=== PATIENT | female | born 1980 | race African-American/Black ===

== ENCOUNTER 2022-07-12 12:21 | Emergency (ER) | payer OTHER, SELFPAY ==
[2022-07-12 12:32] VITALS: BP 153/91; PULSE 90; RESP 15; TEMP 35.6; O2SAT 98; BMI 32.5
--- NOTE | 2022-07-12 14:13 | ED.BACK ---
HPI - Back Pain/Injury <TRAN Lloyd - Last Filed: 07/12/22 14:30> General Chief Complaint: Back Pain/Injury Stated Complaint: L Lower back side pain extrem discomfort Time Seen by Provider: 07/12/22 13:59 Source: patient History of Present Illness HPI Narrative: This is a 42-year-old female presents to the emergency department complaining of left-sided sciatica symptoms with pain starting at her posterior buttock and traveling down the lateral aspect of her leg to her mid thigh. She states it is sharp, has a history of stroke, is anticoagulated on Eliquis, has been seen 2 times for this pain that has been going on for 3 or more weeks. She was seen for this in [place], was given Flexeril which she states was not that helpful, she was seen on 06/20/2022 at [facility] in [place] where lumbar x-rays were completed without acute abnormality, she was given a steroid pack and states that it helped briefly but did not make a large difference. She denies any weakness, incontinence, urinary retention, or constipation. [facility] to follow-up with a primary care provider. She has received a referral for massage, chiropractor, but has not seen physical therapy or orthopedics for this yet. Related Data Previous Rx's Medication Instructions Recorded diclofenac sodium 1 % topical gel 2 g topical QID #100 grams 07/12/22 hydrocodone 5 mg-acetaminophen 325 1 tab PO BID #10 tabs 07/12/22 mg tablet lidocaine 5 % topical patch 1 patch topical DAILY #15 ea 07/12/22 (Lidoderm) methocarbamol 500 mg tablet 500 mg PO BEDTIME PRN muscle spasm 07/12/22 #14 tabs prednisone 20 mg tablet 40 mg PO DAILY 5 days #10 tabs 07/12/22 Allergies Allergy/AdvReac Type Severity Reaction Status Date / Time No Known Drug Allergies Allergy Verified 07/12/22 12:32 Review of Systems <TRAN Lloyd - Last Filed: 07/12/22 14:30> Review of Systems Narrative: Review of systems is negative for acute abnormalities unless otherwise noted in HPI Patient History <RTAN Lloyd - Last Filed: 07/12/22 14:30> Social History Smoking Status: Unknown if ever smoked Smoking Status: Unknown if ever smoked alcohol intake frequency: holidays/special occasions only Substance Use Type: does not use Exam <TRAN Lloyd - Last Filed: 07/12/22 14:30> Narrative Exam Narrative: Reviewed vitals signs and nursing notes. General: cooperative, comfortable, in no acute distress, well groomed, smoker, afebrile HEENT: symmetrical facial expressions, moist mucous membranes, and congestion is present Cardiovascular: regular rate and rhythm, no peripheral edema, warm extremities Respiratory: normal effort, able to speak in complete sentences, without wheezing, stridor, or abnormal breath sounds. No retractions or tachypnea. Breath sounds clear in bases and bilaterally, no increased respiratory effort, no tenderness over her lumbar spine with palpation, without weakness, dorsiflexion and plantar extension intact bilaterally with grossly equal strength. MSK: moves all extremities, neurovascularly intact, no weakness, normal tone Skin: brisk capillary refill, without pallor or erythema Neuro: normal speech and cognition, A&O x3, ambulatory, clear speech Psych: mental status is grossly normal, congruent mood, normal affect, pleasant and cooperative Initial Vital Signs Initial Vital Signs: Vital Signs Temperature 96.0 F L 07/12/22 12:32 Pulse Rate 90 07/12/22 12:32 Respiratory Rate 15 07/12/22 12:32 Blood Pressure 153/91 H 07/12/22 12:32 Pulse Oximetry 98 07/12/22 12:32 Oxygen Delivery Method 07/12/22 12:32 <Frederick Hawk DO - Last Filed: 07/12/22 14:35> Initial Vital Signs Initial Vital Signs: Vital Signs Temperature 96.0 F L 07/12/22 12:32 Pulse Rate 90 07/12/22 12:32 Respiratory Rate 15 07/12/22 12:32 Blood Pressure 153/91 H 07/12/22 12:32 Pulse Oximetry 98 07/12/22 12:32 Oxygen Delivery Method 07/12/22 12:32 Course <TRAN Lloyd - Last Filed: 07/12/22 14:30> Orders Ordered: Discontinued Medications Hydrocodone Bitart/Acetaminophen (Hydrocodone/Acet 5/325 Tablet) 1 tab PO NOW ONE Stop: 07/12/22 14:09 Last Admin: 07/12/22 14:33 Dose: Not Given Documented By: CICI Lidocaine (Lidocaine Patch 1 Each Adh..Patch) 1 each TOP NOW ONE Stop: 07/12/22 14:09 Last Admin: 07/12/22 14:32 Dose: 1 each Documented By: CICI Methocarbamol (Methocarbamol 500 Mg Tablet) 500 mg PO NOW ONE Stop: 07/12/22 14:09 Last Admin: 07/12/22 14:33 Dose: Not Given Documented By: CICI Prednisone (Prednisone 20 Mg Tablet) 60 mg PO NOW ONE Stop: 07/12/22 14:09 Last Admin: 07/12/22 14:33 Dose: 60 mg Documented By: CICI Vital Signs Vital signs: Vital Signs - 8 hr 07/12/22 12:32 Temperature 96.0 F L Pulse Rate 90 Respiratory Rate 15 Blood Pressure 153/91 H Pulse Oximetry 98 Oxygen Delivery Method Room Air <Frederick Hawk DO - Last Filed: 07/12/22 14:35> Orders Ordered: Discontinued Medications Hydrocodone Bitart/Acetaminophen (Hydrocodone/Acet 5/325 Tablet) 1 tab PO NOW ONE Stop: 07/12/22 14:09 Last Admin: 07/12/22 14:33 Dose: Not Given Documented By: CICI Lidocaine (Lidocaine Patch 1 Each Adh..Patch) 1 each TOP NOW ONE Stop: 07/12/22 14:09 Last Admin: 07/12/22 14:32 Dose: 1 each Documented By: CICI Methocarbamol (Methocarbamol 500 Mg Tablet) 500 mg PO NOW ONE Stop: 07/12/22 14:09 Last Admin: 07/12/22 14:33 Dose: Not Given Documented By: CICI Prednisone (Prednisone 20 Mg Tablet) 60 mg PO NOW ONE Stop: 07/12/22 14:09 Last Admin: 07/12/22 14:33 Dose: 60 mg Documented By: CICI Vital Signs Vital signs: Vital Signs - 8 hr 07/12/22 12:32 Temperature 96.0 F L Pulse Rate 90 Respiratory Rate 15 Blood Pressure 153/91 H Pulse Oximetry 98 Oxygen Delivery Method Room Air MDM - Back Pain/Injury <TRAN Lloyd - Last Filed: 07/12/22 14:30> MDM Narrative Medical decision making narrative: This is a 42-year-old female presents to the emergency department after 2 visits for her left-sided sciatica which has not improved after steroids and muscle relaxers. Patient has a history of CVA and is anticoagulated on Eliquis, she can not have NSAIDs, she presents for the 3rd time at a new facility for evaluation of her lumbar radiculopathy, she is without weakness, incontinence, signs of cauda equina, groin paresthesia, numbness or tingling. She endorses left lateral hip pain radiating to the mid thigh which comes from her posterior buttock. She is without trauma and is afebrile. Given history and exam, suspect likely musculoskeletal etiology, they are nontoxic appearing with no overt risk factors for epidural hematoma or abscess. No overt evidence of critical cord compression and has a nonfocal near exam. Neurovascularly intact distally, no evidence of infection, peritoneal signs, hypertensive crisis, or abdominal pain with low suspicion for AAA. No weakness, incontinence, neurovascular or sensation changes, no concerning findings for caudal equina syndrome, lumbar fracture, without paresthesia, neuropathic pain, meningeal signs and fever. This could be a herniated disk, paraspinal or other muscle strain, ligamental injury, arthritic, nephrolithiasis/pyelonephritis, epidural abscess, chronic pain, and other diagnosis? considered less likely. She is given referral contact information for [facility] and encouraged to follow-up with her primary care provider to your referral to physical therapy. Patient is appropriate and amenable to discharge home. Vital signs are stable on repeat examination is unremarkable. Patient has been informed of results. Patient has been given strict return to ER precautions for any new or worsening symptoms. Patient understands to follow up closely with outpatient providers as instructed. Patient understands plan and agrees to discharge home. All questions and concerns answered at this time. Discharge Plan Departure Patient Disposition: Home Clinical Impression: Sciatica Qualifiers: Laterality: left Qualified Code(s): M54.32 - Sciatica, left side Instructions: DI for Sciatica Activity Restrictions/Additional Instructions: *You have been diagnosed with sciatica which is likely coming from your lumbar spine causing radiation of pain from there due to an irritated nerve root. Please use the topical agents I have prescribed for you in conjunction with Tylenol, hydrocodone, and the steroid again. Please follow-up at [facility] for another evaluation and/or with physical therapy. You may benefit from steroid injections to this area if this has been recurrent. They can help get you connected over there. I hope you start feeling better soon, try to avoid overuse, over strain, or over massage while this is getting better. Heat and ice can be helpful, try to avoid lots of bending or flexion of your lower lumbar spine. I wish you the best. The diclofenac gel is the best thing to use frequently because he can not take ibuprofen. *What to do: *Please continue to take your regular medications as directed. [x ] New medication prescriptions sent to your pharmacy: [ [facility] ] [ ] New medication written as a paper prescription [ ] No new medications given *Please follow up with your primary care provider in 2-3 days, call for an appointment. Let them know you were seen in the Emergency Department and that we asked that you be seen for follow-up. We will electronically transmit a record of today's note if your PCP is in our system *If you do not have a primary care provider please contact [phone] to establish care with one of the [facility] primary care providers. *Return to Emergency Department if you should have any new, worsening, or concerning symptoms, such as [fever greater than 101F, chills, worsening pain, persistent vomiting or other bothersome symptoms]. Prescriptions: New hydrocodone-acetaminophen 5-325 mg tablet 1 tab PO BID Qty: 10 0RF lidocaine [Lidoderm] 5 % adhesive patch,medicated 1 patch topical DAILY Qty: 15 0RF Rx Instructions: leave on most painful area for up to 12 hrs diclofenac sodium 1 % gel 2 g topical QID Qty: 100 0RF Rx Instructions: apply to area of pain up to 4 times daily methocarbamol 500 mg tablet 500 mg PO BEDTIME PRN (Reason: muscle spasm) Qty: 14 0RF prednisone 20 mg tablet 40 mg PO DAILY 5 Days Qty: 10 0RF Referrals: [facility] [Provider Group] <Frederick Hawk, DO - Last Filed: 07/12/22 14:35> Cosign ED Attending Coskirbyature Attestation: Dr Hawk Co-Sign Statement: I was available for consultation during this patient's emergency department visit. This chart is signed by myself for administrative purposes only. I did not have direct contact with this patient during this visit. They were seen independently by the [facility].
[2022-07-12] MEDS: LIDOCAINE PATCH 1 EACH ADH..PATCH TOP (14:32)
[2022-07-12] MEDS: predniSONE 20 MG TABLET 60 MG PO (14:33)
== END 2022-07-12 15:42 | disposition home or self-care (01) ==
PROVIDERS: Emergency Provider Nurse Practitioner Critical Care Medicine
DX: M54.32 Sciatica, left side (principal); Z79.01 Long term (current) use of anticoagulants
CPT/HCPCS: 99283

== ENCOUNTER 2022-10-02 14:48 | Emergency (ER) | payer OTHER, SELFPAY ==
[2022-10-02 14:57] VITALS: BP 155/74; PULSE 94; RESP 18; TEMP 36.6; O2SAT 98; BMI 33.6
--- NOTE | 2022-10-02 15:03 | DI.RAD.S_ITS ---
PROCEDURE: XR CHEST 1V INDICATIONS: Shortness of breath TECHNIQUE: One view of the chest was acquired. COMPARISON: [facility], CT, CT HEAD/BRAIN WO CON, 10/02/2022, 15:29. [facility], CR, XR THORACIC SPINE 3 VIEWS, 06/20/2022, 14:43. FINDINGS: Surgical changes and devices: None. Lungs and pleura: Lungs are clear. No pleural effusions or pneumothorax. Mediastinum: Mediastinal contours appear normal. Heart size is normal. Bones and chest wall: No suspicious bony lesions. Overlying soft tissues appear unremarkable. IMPRESSION: Portable chest within normal limits. Dictated by: Brad Payne M.D. on 10/02/2022 at 14:48 Approved by: Brad Payne M.D. on 10/02/2022 at 14:49
--- NOTE | 2022-10-02 15:18 | DI.CT.S_ITS ---
PROCEDURE: CT HEAD/BRAIN WO CON INDICATIONS: chest pain/pressure, left arm numb, hx of stroke TECHNIQUE: Noncontrast 4.5 mm thick angled axial sections acquired from the foramen magnum to the vertex, with coronal and sagittal reformats. For radiation dose reduction, the following was used: automated exposure control, adjustment of mA and/or kV according to patient size. COMPARISON: [facility], CR, XR CHEST 1V, 10/02/2022, 15:16. FINDINGS: Image quality: Excellent. CSF spaces: Basal cisterns are patent. No extra-axial fluid collections. Ventricles are normal in size and shape. Brain: No midline shift. No intracranial masses or hemorrhage. Antonio-white matter interface is normal. Skull and face: Calvarium and visualized facial bones are intact, without suspicious lesions. Sinuses: Visualized sinuses and mastoids are clear. IMPRESSION: No acute intracranial hemorrhage is seen. No acute intracranial process is seen. If there is strong clinical suspicion for an acute stroke, please consider a brain MRI for further evaluation, as it is more sensitive (assuming that there is no contraindication to MRI). Dictated by: Brad Payne M.D. on 10/02/2022 at 14:49 Approved by: Brad Payne M.D. on 10/02/2022 at 14:50
[2022-10-02 15:21] LABS: Add Manual Diff / Slide Review NO; Basophils Absolute Auto 100 /uL (0-100); Basophils Percent Auto 0.7 % (0-2); Eosinophils Absolute Auto 200 /uL (0-450); Hematocrit 37.8 % (36-46); Hemoglobin 12.5 g/dL (12.0-16.0); Lymphocytes Absolute Auto 2100 /uL (1100-4500); Mean Corpuscular HGB Conc 33.1 % (30-36); Mean Corpuscular Hemoglobin 28.2 PG (26-34); Monocytes Absolute Auto 600 /uL (0-900); Monocytes Percent Auto 8.1 % (3-14); Neutrophils Absolute Auto 4700 /uL (1500-7000); Neutrophils Percent Auto 61.2 % (50-75); Platelet Count 246 X10^3/uL (150-400); Red Blood Cell Count 4.44 X10^6/uL (4.0-5.2); Red Cell Distribution Width 14.3 % (11.6-14.8); White Blood Cell Count 7.6 X10^3/uL (4.5-11.0)
[2022-10-02 15:29] LABS: INR 1.2 (0.9-1.3)
[2022-10-02 15:38] LABS: Alanine Aminotransferase 20 IU/L (<35); Albumin 4.1 g/dL (3.5-5.0); Albumin Globulin Ratio 1.1 (1.0-2.8); Alkaline Phosphatase 71 U/L (38-126); Aspartate Aminotransferase 34 IU/L (14-36); BUN Creatinine Ratio 17.8 (6-22); Bilirubin Total 0.8 mg/dL (0.2-1.3); Blood Urea Nitrogen 13 mg/dL (7-17); Calcium 8.3 mg/dL (8.4-10.2); Carbon Dioxide 28 mmol/L (22-32); Chloride 101 mmol/L (98-107); Estimated Glomerular Filt Rate > 60 mL/min (>60); Globulin 3.9 g/dL (1.7-4.1); Glucose 82 mg/dL (70-100); Lactate (Lactic Acid) 1.2 mmol/L (0.7-2.1); Potassium 4.7 mmol/L (3.4-5.1); Sodium 137 mmol/L (137-145)
[2022-10-02 15:39] LABS: HEMOLYSIS 119 (0-50)
[2022-10-02 15:50] LABS: NT-proBNP (BNP-Adult 18+) 73 pg/mL (<125); Troponin I < 0.012 ng/mL (0.01-0.034)
[2022-10-02 17:36] LABS: COVID19 -Nasal RAPID Negative (Negative)
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
--- NOTE | 2022-10-02 17:52 | DI.CT.S_ITS ---
PROCEDURE: CT ANGIO HEAD AND NECK INDICATIONS: left arm numbness hx of cva TECHNIQUE: After the administration of intravenous contrast, 1 mm thick sections acquired from the aortic arch through the [place] of [place]. Post-contrast 4.5 mm thick sections then re-acquired from the foramen magnum to the vertex. 3-dimensional igzfjvq-wfvvofqyh-ackcuzkgcc (MIP) and/or volume rendering reformats were acquired of the central intracranial vasculature and neck separately. For radiation dose reduction, the following was used: automated exposure control, adjustment of mA and/or kV according to patient size. COMPARISON: [facility], CT, CT HEAD/BRAIN WO CON, 10/02/2022, 15:29. FINDINGS: Image quality: Excellent. BRAIN: CSF spaces: Ventricles are normal in size and shape. Basal cisterns are patent. No extra-axial fluid collections. Brain: No midline shift. No intracranial bleeds or masses. Antonio-white matter interface appears intact. Skull and face: Calvarium and facial bones appear intact, without suspicious lesions. Orbits appear normal. Sinuses: Mild bilateral maxillary sinus mucosal thickening. Mastoids are clear. HEAD CT ANGIOGRAPHY: Anterior circulation: Intracranial internal carotid arteries are normal in size and flow. The flow within the paired anterior cerebral arteries is normal and symmetric. The flow within the middle cerebral arteries is normal and symmetric. The anterior communicating artery is seen. No aneurysms are seen. Posterior circulation: Visualized portions of the vertebral arteries demonstrate normal caliber, and join to form a normal appearing basilar artery. Flow within the posterior cerebral arteries is normal and symmetric. No aneurysms are seen. NECK CT ANGIOGRAPHY: Carotid system: The great vessels demonstrate a conventional anatomy as they arise from the aortic arch. The origins of the common carotid arteries appear patent. The common carotid arteries demonstrate normal caliber and courses. The bifurcation regions are both widely patent. The internal carotid arteries demonstrate normal calibers and courses. Posterior circulation: The origins of the vertebral arteries both appear widely patent. The more superior extracranial portions of both vertebral arteries also demonstrate normal courses and calibers. They join to form a normal appearing basilar artery. Soft tissues: Visualized neck soft tissues demonstrate no suspicious abnormalities. Bones: No suspicious bony lesions. Visualized cervical spine appears normally aligned. IMPRESSION: 1. No acute intracranial abnormalities. 2. No hemodynamic significant stenosis in anterior or posterior circulations. 3. No hemodynamic significant stenosis in cervical carotid arteries or vertebral arteries bilaterally. Any quantitative measurements of stenosis were performed using NASCET criteria. Dictated by: Suzie Carbajal M.D. on 10/02/2022 at 19:04 Approved by: Suzie Carbajal M.D. on 10/02/2022 at 19:10
[2022-10-02] MEDS: ACETAMINOPHEN 325 MG TABLET 975 MG PO (18:16)
[2022-10-02 18:51] LABS: Troponin I < 0.012 ng/mL (0.01-0.034)
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
[2022-10-02] MEDS: MORPHINE 4 MG/ML INJ IV (19:41)
[2022-10-02] MEDS: HYDROCODONE/ACET 5/325 PREPACK 1 BOTTLE MISC (19:42)
[2022-10-02 20:04] VITALS: BP 140/92; PULSE 88; RESP 14; O2SAT 99
== END 2022-10-02 20:09 | disposition home or self-care (01) ==
PROVIDERS: Emergency Provider Emergency Medicine
DX: R07.89 Other chest pain (principal); M62.838 Other muscle spasm; F43.10 Post-traumatic stress disorder, unspecified; Z20.822 Contact with and (suspected) exposure to COVID-19
CPT/HCPCS: 36415; 70450; 70496; 70498; 71045; 80053; 83605; 83880; 84484; 85025; 85610; 87635; 93005; 96374; 99284; C9803; J2270; Q9967

== ENCOUNTER 2023-01-01 16:41 | Emergency (ER) | payer OTHER, SELFPAY ==
--- NOTE | 2023-01-01 16:45 | ED.GENADULT ---
HPI - General Adult General Chief complaint: Upper Respiratory Symptoms Stated complaint: Throat problems, Losing voice Time Seen by Provider: 01/01/23 16:45 History of Present Illness HPI narrative: 42-year-old female nonsmoker with noncontributory medical history presents with multiple family members and a chief complaint of some nasal congestion, occasional cough in the chief complaint of losing her voice over the past few days. She is had some sore throat but denies any difficulty swelling or any sense of an obstructive process. She denies any fever or chills. She denies nausea, vomiting or diarrhea. Related Data Previous Rx's Medication Instructions Recorded diclofenac sodium 1 % topical gel 2 g topical QID #100 grams 07/12/22 hydrocodone 5 mg-acetaminophen 325 1 tab PO BID #10 tabs 07/12/22 mg tablet lidocaine 5 % topical patch 1 patch topical DAILY #15 ea 07/12/22 (Lidoderm) methocarbamol 500 mg tablet 500 mg PO BEDTIME PRN muscle spasm 07/12/22 #14 tabs Allergies Allergy/AdvReac Type Severity Reaction Status Date / Time No Known Drug Allergies Allergy Verified 07/12/22 12:32 Review of Systems Review of Systems Narrative: GENERAL: See HPI HEENT: PI see HPI RESPIRATORY: Denies dyspnea, cough, wheezing, hemoptysis, sputum. CARDIOVASCULAR: Denies chest pain, palpitations, orthopnea, edema, GASTROINTESTINAL: Denies nausea, vomiting, abdominal pain, diarrhea, constipation, melena. : Denies dysuria, frequency, incontinence, hematuria, urinary retention. MUSCULOSKELETAL: denies weakness, joint pain, or bony pain SKIN: Denies rash, skin lesions, or other NEUROLOGIC: Denies weakness, headache, numbness, change in speech, confusion, seizures, incoordination. PSYCHIATRIC: No concerning psychosocial issues. 12 point review of systems is negative except for those stated above Patient History Social History Smoking Status: Unknown if ever smoked Smoking Status: Unknown if ever smoked alcohol intake frequency: holidays/special occasions only Substance Use Type: does not use Exam Narrative Exam Narrative: GENERAL: [42] year old patient appears stated age. Well-developed patient, in mild distress. HEAD: Atraumatic. Normocephalic. EYES: Pupils equal round and reactive. Extraocular motions intact. No scleral icterus. No injection or drainage. ENT: Nose without bleeding, purulent drainage. clear postnasal drip, no tonsillar swelling, erythema or exudate NECK: Trachea midline. Non tender CARDIOVASCULAR: Regular rate and rhythm without murmurs, gallops, or rubs. RESPIRATORY: Clear to auscultation. Breath sounds equal bilaterally. No wheezes, rales, or rhonchi. GASTROINTESTINAL: Abdomen soft, non-tender, nondistended. EXTREMITIES: No edema or joint tenderness. BACK: Nontender without deformity or crepitance. No flank tenderness. NEURO: AOx3. SKIN: No rash or erythema of visible areas Initial Vital Signs Initial Vital Signs: Vital Signs Temperature 98.3 F 01/01/23 17:04 Pulse Rate 82 01/01/23 17:04 Respiratory Rate 18 01/01/23 17:04 Blood Pressure 150/85 H 01/01/23 17:04 Pulse Oximetry 92 01/01/23 17:04 Oxygen Delivery Method Room Air 01/01/23 17:04 Course Orders Ordered: ED Orders 01/01/23 16:52 Chest [XR chest 2V] Stat 01/01/23 17:12 Covid-19 + FLU A/B + RSV - PCR Stat 01/01/23 17:13 Strep Grp A by PCR Rapid Stat Vital Signs Vital signs: Vital Signs - 8 hr 01/01/23 17:04 Temperature 98.3 F Pulse Rate 82 Respiratory Rate 18 Blood Pressure 150/85 H Pulse Oximetry 92 Oxygen Delivery Method Room Air Medical Decision Making Lab Data Labs: Lab Results 01/01/23 01/01/23 Range/Units 17:12 17:13 SARS-CoV-2 (PCR) Negative (Negative) Influenza A (RT-PCR) Flu a negative (NEGATIVE) Influenza B (RT-PCR) Flu b negative (NEGATIVE) RSV (PCR) Negative (Negative) Group A Strep (PCR) Negative (Negative) MDM Narrative Medical decision making narrative: [42] year old patient presents with upper respiratory symptoms and loss of voice Multiple etiologies for patient's symptoms considered including, but not limited to: [Viral etiology versus straining while preparing to seeing with her seeing group versus other] Prior Charts reviewed in our EMR Primary Historian: patient Labs reviewed and interpreted by myself: Respiratory panel negative Imaging reviewed: NAP Patient has reassuring history and physical exam and widespread symptoms most consistent with a viral upper respiratory etiology. The for panel respiratory swab was negative for flu, COVID and RSV. Chest x-ray shows no infiltrate. Patient is appropriately hydrated with moist mucous membranes, controlling secretions, no difficulty swallowing. No difficulty breathing. No indication for further workup at this time, discussions regarding symptomatic treatment Findings and discharge diagnosis discussed with patient/family followed by verbalization of understanding Return precautions discussed with patient/family whom verbalize understanding of diagnosis and plan Discharge Plan Departure Patient Disposition: Home Clinical Impression: Laryngitis, Upper respiratory virus Instructions: Viral Pharyngitis Activity Restrictions/Additional Instructions: *You have been diagnosed with [various symptoms due to viral upper respiratory infection] *What to do: *Please consider the use of [id number] antihistamines such as elke or zyrtec which can dry the secretions that are causing many of these symptoms. Fever: *Fever is temperature over 101F, it is a common feature of most viral and bacterial infections *Fever tends to come back once the Tylenol (acetaminophen) or Motrin (ibuprofen) wears off as these medications do not treat the underlying cause, just the fever itself *Treat the patient, not the number. If your child is running around and playing you don't have to treat the fever, however, if they seem grumpy or uncomfortable it is reasonable to treat fever *Consider alternating between Tylenol and Motrin so you will be giving medications prior to the previous dose wearing off: * your history and physical exam are very reassuring and there is no indication that the symptoms are due to a bacterial infection, therefore there is no indication for antibiotics. *Please follow up with your primary care provider in 2-3 days, call for an appointment. Let them know you were seen in the Emergency Department and that we ask that you be seen in follow up. We will electronically transmit a record of today's note if your PCP is in our system *If you do not have a primary care provider please contact the [facility] Resource line at [phone]. They will ask some questions about your medical history and help get you set up with a doctor in the community. *Return to Emergency Department if you should have any new, worsening or concerning symptoms increased work of breathing with flaring of nostrils, using belly to breathe, persistent vomiting, or other bothersome symptoms Prescriptions: No Action hydrocodone-acetaminophen 5-325 mg tablet 1 tab PO BID Qty: 10 0RF lidocaine [Lidoderm] 5 % adhesive patch,medicated 1 patch topical DAILY Qty: 15 0RF Rx Instructions: leave on most painful area for up to 12 hrs diclofenac sodium 1 % gel 2 g topical QID Qty: 100 0RF Rx Instructions: apply to area of pain up to 4 times daily methocarbamol 500 mg tablet 500 mg PO BEDTIME PRN (Reason: muscle spasm) Qty: 14 0RF Stand Alone Forms: Patient Portal/API
--- NOTE | 2023-01-01 16:52 | DI.RAD.S_ITS ---
PROCEDURE: XR CHEST 2V INDICATIONS: cough TECHNIQUE: 2 views of the chest were acquired. COMPARISON: [facility], CR, XR CHEST 1V, 10/02/2022, 15:16. FINDINGS: Surgical changes and devices: None. Lungs and pleura: Lungs are clear. No pleural effusions or pneumothorax. Mediastinum: Mediastinal contours are normal. Heart size is normal. Bones and chest wall: No suspicious bony abnormalities. Soft tissues appear unremarkable. IMPRESSION: No acute process. Dictated by: Rebecca Fletcher M.D. on 01/01/2023 at 16:21 Approved by: Rebecca Fletcher M.D. on 01/01/2023 at 16:21
[2023-01-01 17:04] VITALS: BP 150/85; PULSE 82; RESP 18; TEMP 36.8; O2SAT 92; BMI 32.9
[2023-01-01 17:32] LABS: Strep Grp A by PCR Rapid Negative (Negative)
[2023-01-01 18:30] LABS: Influenza A - CEPHEID Flu A NEGATIVE (NEGATIVE); Influenza B - CEPHEID Flu B NEGATIVE (NEGATIVE); Respiratory Syncytial Virus Negative (Negative)
[2023-01-01 18:32] LABS: COVID-19 CEPHEID 4-PLEX PCR Negative (Negative)
[2023-01-01 18:41] VITALS: BP 147/87; PULSE 89; O2SAT 100
== END 2023-01-01 18:42 | disposition home or self-care (01) ==
PROVIDERS: Emergency Provider Emergency Medicine
DX: J06.9 Acute upper respiratory infection, unspecified (principal); J04.0 Acute laryngitis; Z20.822 Contact with and (suspected) exposure to COVID-19
CPT/HCPCS: 0241U; 71046; 87651; 99281; 99283

== ENCOUNTER 2023-12-09 00:06 | Emergency (ER) | payer OTHER, SELFPAY ==
--- NOTE | 2023-12-09 00:11 | ED.PSYCH ---
HPI - Psych General Chief Complaint: Headache Stated Complaint: Med check Time Seen by Provider: 12/09/23 00:09 History of Present Illness HPI Narrative: Patient 43-year-old female history of depression presents today with needing medication refill. She reports that she is on duloxetine she usually takes it twice a day however for the last 4 days she has been out of it. She recently moved she can not find it she has [facility] She says her depression is always there but lately getting louder. She denies any suicidal or homicidal ideations. Currently here with daughter who is a patient but is checking herself as well. Related Data Previous Rx's Medication Instructions Recorded diclofenac sodium 1 % topical gel 2 g topical QID #100 grams 07/12/22 hydrocodone 5 mg-acetaminophen 325 1 tab PO BID #10 tabs 07/12/22 mg tablet lidocaine 5 % topical patch 1 patch topical DAILY #15 ea 07/12/22 (Lidoderm) methocarbamol 500 mg tablet 500 mg PO BEDTIME PRN muscle spasm 07/12/22 #14 tabs duloxetine 30 mg capsule,delayed 30 mg PO BID #20 caps 12/09/23 release Allergies Allergy/AdvReac Type Severity Reaction Status Date / Time No Known Drug Allergies Allergy Verified 07/12/22 12:32 Patient History Social History Smoking Status: Unknown if ever smoked Smoking Status: Unknown if ever smoked alcohol intake frequency: holidays/special occasions only Substance Use Type: does not use Exam Initial Vital Signs Initial Vital Signs: Vital Signs Temperature 97.9 F 12/09/23 00:35 Pulse Rate 79 12/09/23 00:35 Respiratory Rate 18 12/09/23 00:35 Blood Pressure 171/101 H 12/09/23 00:35 Pulse Oximetry 100 12/09/23 00:35 Oxygen Delivery Method Room Air 12/09/23 00:35 GENERAL: Tearful well-appearing 43-year-old female CARDIOVASCULAR: peripheral pulses in tact, cap refill <2 sec RESPIRATORY: No respiratory distress, speaks in full sentences without difficulty EXTREMITIES: Normal range of motion, no clubbing or edema. Neurovascularly intact NEUROLOGICAL: Cranial nerves II through XII grossly intact. Normal gait and speech. SKIN: Warm, dry, no petechiae, no rashes or lesions. Course Orders Ordered: Discontinued Medications Duloxetine HCl (Duloxetine 30 Mg Capsule) 30 mg PO NOW ONE Stop: 12/09/23 00:17 Last Admin: 12/09/23 00:37 Dose: 30 mg Documented By: JOSIAS Vital Signs Vital signs: Vital Signs - 8 hr 12/09/23 00:35 Temperature 97.9 F Pulse Rate 79 Respiratory Rate 18 Blood Pressure 171/101 H Pulse Oximetry 100 Oxygen Delivery Method Room Air MDM - Psych MDM Narrative Medical decision making narrative: Patient is a 43-year-old female who presents today with depression and out of her medication. She recently just moved she has been out of her meds for a few days she feels like her depression is getting worse he needs her medication. She has been trying to get in touch with the be unable to do so. Denies any homicidal or suicidal ideations. She is unsure if her dosage of duloxetine reports that she takes it twice a day. She is given 30 mg duloxetine here along prescription. Discharge Plan Departure Patient Disposition: Home Clinical Impression: Depression Instructions: Depression Activity Restrictions/Additional Instructions: *You have been diagnosed with depression *What to do: At this time please contact your primary provider for full refill on your medication *Continue to take medications as directed Duloxetine 30 mg twice a day *Follow up with your primary care provider in 2-3 days or call [phone] *Return to ER if you should have increasing depression thoughts of self-harm or any new, worsening or concerning symptoms Prescriptions: New duloxetine 30 mg capsule,delayed release(DR/EC) 30 mg PO BID Qty: 20 0RF No Action hydrocodone-acetaminophen 5-325 mg tablet 1 tab PO BID Qty: 10 0RF lidocaine [Lidoderm] 5 % adhesive patch,medicated 1 patch topical DAILY Qty: 15 0RF Rx Instructions: leave on most painful area for up to 12 hrs diclofenac sodium 1 % gel 2 g topical QID Qty: 100 0RF Rx Instructions: apply to area of pain up to 4 times daily methocarbamol 500 mg tablet 500 mg PO BEDTIME PRN (Reason: muscle spasm) Qty: 14 0RF Stand Alone Forms: Patient Portal/API
[2023-12-09 00:35] VITALS: BP 171/101; PULSE 79; RESP 18; TEMP 36.6; O2SAT 100; BMI 31.5
[2023-12-09] MEDS: DULOXETINE 30 MG CAPSULE PO (00:37)
== END 2023-12-09 00:42 | disposition home or self-care (01) ==
PROVIDERS: Emergency Provider Emergency Medicine
DX: F32.A Depression, unspecified (principal)
CPT/HCPCS: 99283